=== PATIENT | female | born 1955 | race Caucasian/White ===

== ENCOUNTER 2020-03-13 20:02 | Emergency (ER) | payer MEDICARE, BC ==
[~2020-03-13] VITALS: Ht 160 cm; Wt 53.5 kg
[2020-03-13 20:07] VITALS: BP 113/73
--- NOTE | 2020-03-13 20:10 | NUR ---
PT BIBRA 839 FRO R FOREHEAD LACERATION S/P GLF. - KO. PT AAOX4, RESPIRATIONS EVEN AND UNLABORED ON RA W/ NAD NOTED. PT CONNECTED TO THE MONITOR AND POX
[2020-03-13] MEDS ORDERED: LIDOCAINE 1%-EPI 1:100,000 20 ML VIAL ONE (20:26)
[2020-03-13] MEDS ORDERED: TDAP [DIPH/PERTUSSIS/TET] 0.5 ML VIAL IM ONE ×2 (20:30→20:33)
[2020-03-13] MEDS ORDERED: ACETAMINOPHEN 325 MG TABLET PO ONE (20:30)
[2020-03-13] MEDS ORDERED: ACETAMINOPHEN ES 500 MG TABLET ONE (20:33)
--- NOTE | 2020-03-13 20:36 | NUR ---
PT TAKEN TO CT
--- NOTE | 2020-03-13 21:59 | NUR ---
Patient discharged to home in stable condition. Written and verbal after care instructions given. Patient verbalizes understanding of instruction.
--- NOTE | 2020-03-13 21:59 | NUR ---
Pt ambulatory with a steady gait
== END 2020-03-13 22:00 | disposition home or self-care (01) ==
LOC: ER 20:06 → EDBD 20:06 → ER 22:00
DX: S01.81XA Laceration without foreign body of other part of head, initial encounter (principal); M54.2 Cervicalgia; F32.9 Major depressive disorder, single episode, unspecified; Z98.890 Other specified postprocedural states; W01.0XXA Fall on same level from slipping, tripping and stumbling without subsequent striking against object, initial encounter; Y93.89 Activity, other specified; Y92.89 Other specified places as the place of occurrence of the external cause; Y99.8 Other external cause status
CPT/HCPCS: 70450; 70486; 72125; 90471; 90715; 99285; A6403; J3490; L0172